=== PATIENT | female | born 1975 | race American Indian/Alaskan Native ===

== ENCOUNTER 2016-11-05 12:53 | Emergency (ER) | payer SELFPAY ==
[2016-11-05 13:07] VITALS: BP 134/62
[2016-11-05 13:41] LABS: Anion Gap 16 mmol/L; BUN/Creatinine Ratio 14.28; Blood Urea Nitrogen 10 mg/dL (7-17); Calcium 8.9 mg/dL (8.4-10.2); Carbon Dioxide 25 mmol/L (22-30); Chloride 101.8 mmol/L (98-107); Glucose 79 mg/dL (65-100); Potassium 4.5 mmol/L (3.6-5.0); Sodium 138 mmol/L (137-145)
[2016-11-05 13:52] LABS: Bilirubin,Urine NEG (Negative); Blood,Urine NEG (Negative); Ketones,Urine NEG (Negative); Leukocyte Esterase,Urine NEG (Negative); Mucus,Urine FEW /HPF; Nitrite,Urine NEG (Negative); Protein,Urine <15 mg/dL mg/dL (Negative); Urobilinogen,Urine < 2.0 mg/dL (<2.0)
[2016-11-05 13:54] LABS: Basophils % (Auto) 0.5 % (0.0-1.8); Hematocrit 38.9 % (30.3-42.9); Hemoglobin 12.4 gm/dl (10.1-14.3); Mean Corpuscular HGB Conc 32 % (30-34); Mean Corpuscular Hemoglobin 29 pg (28-32); Mean Corpuscular Volume 92 fl (79-97); Platelet Count 218 K/mm3 (140-440); Red Blood Count 4.24 M/mm3 (3.65-5.03); Red Cell Distribution Width 12.4 % (13.2-15.2); White Blood Count 6.9 K/mm3 (4.5-11.0)
--- NOTE | 2016-11-05 13:58 | XRay Report ---
ROUTINE CHEST, TWO VIEWS: HISTORY: chest pain. The trachea, heart, mediastinal contour, lung [place] and bony thorax are unremarkable. IMPRESSION: Unremarkable chest x-ray.
== END 2016-11-05 17:15 | disposition left against medical advice (07) ==
LOC: ED 12:53
DX: R06.00 Dyspnea, unspecified (principal); Z53.21 Procedure and treatment not carried out due to patient leaving prior to being seen by health care provider
CPT/HCPCS: 36415; 71020; 80048; 81001; 81025; 84484; 85025; 93005; 93010